=== PATIENT | female | born 1985 | race Caucasian/White ===

== ENCOUNTER 2017-01-18 16:32 | Emergency (ER) | payer BC ==
[~2017-01-18 16:32] MED LIST: AMOXICILLIN PO; NORCO 5/325 TAB1 TAB PO; PHENERGAN PO; ZITHROMAX PO
== END 2017-01-18 16:35 | disposition left against medical advice (07) ==
LOC: CED 16:32
DX: Z53.21 Procedure and treatment not carried out due to patient leaving prior to being seen by health care provider (principal)